=== PATIENT | female | born 2005 | race Two or more races ===

== ENCOUNTER → 2024-05-11 15:27 | Outpatient (CLI) | payer OTHER | END | disposition home or self-care (01) | LOC: PRENATAL 15:27 | PROVIDERS: ATTEND Obstetrics & Gynecology Maternal & Fetal Medicine | DX: O35.9XX0 Maternal care for (suspected) fetal abnormality and damage, unspecified, not applicable or unspecified (principal); O35.3XX0 Maternal care for (suspected) damage to fetus from viral disease in mother, not applicable or unspecified; O44.02 Complete placenta previa NOS or without hemorrhage, second trimester; Z3A.20 20 weeks gestation of pregnancy ==

== ENCOUNTER 2024-07-10 16:16 | Emergency (ER) | payer OTHER ==
[~2024-07-10] VITALS: Ht 167.6 cm; Wt 90.3 kg
[2024-07-10] MEDS ORDERED: HYOSCYAMINE SULFATE 0.125 MG TAB.SUBL SL ONE (17:15)
[2024-07-10 18:11] LABS: URINE APPEARANCE Clear; URINE BILIRRUBIN Negative (NEGATIVE); URINE BLOOD Negative; URINE COLOR Dark Yellow; URINE GLUCOSE Negative (NEGATIVE); URINE KETONE Trace (NEGATIVE); URINE LEUKOCYTE Negative; URINE NITRATE Negative; URINE PROTEIN Trace (NEGATIVE)
[2024-07-10 18:15] LABS: URINE BACTERIA 1327.9 uL (0.0-1933); URINE EPITHELIAL CELLS 17.6 uL (0.0-38.8); URINE RBC 3.6 uL (0.0-20.8); URINE WBC 12.3 uL (0.0-23.2)
[2024-07-10 18:19] LABS: HEMATOCRIT 36.7 % (36.0-45.00); HEMOGLOBIN 12.6 g/dL (12.0-15.00); MEAN CELL VOLUME 88.9 fL (80.00-100.00); MEAN CORPUSCULAR HEMOGLOBIN 30.5 pg (27.00-32.0); MEAN CORPUSCULAR HGB CONC 34.3 g/dl (32.0-36.0); PLATELET COUNT 185 K/uL (150-450); RED BLOOD COUNT 4.13 M/uL (4.00-6.00); RED CELL DISTRIBUTION WIDTH 15.8 % (11.5-14.5)
[2024-07-10 18:54] LABS: CREATININE SERUM 0.54 mg/dL (0.55-1.02); GFR 143.93; POTASSIUM 3.97 mEq/L (3.5-5.1)
[2024-07-10] MEDS ORDERED: LOPERAMIDE HCL 2 MG CAPSULE PO ONE (19:45)
== END 2024-07-10 19:58 | disposition home or self-care (01) ==
LOC: ER 16:17
PROVIDERS: Emergency Medicine
DX: O26.893 Other specified pregnancy related conditions, third trimester (principal); Z3A.28 28 weeks gestation of pregnancy; K52.89 Other specified noninfective gastroenteritis and colitis

== ENCOUNTER 2024-08-17 00:08 | Outpatient (CLI) | payer OTHER ==
[2024-08-16 23:14] VITALS: BP 106/67
[2024-08-17] MEDS ORDERED: PRENATAL CAPLE1 EAC1 PO (00:43)
[2024-08-17] MEDS ORDERED: RINGERS SOLUTION,LACTATED 1,000 ML IV SCH (01:00)
[2024-08-17 01:55] LABS: PH,URINE 7.5 (5.0-8.0); URINE APPEARANCE Clear; URINE BILIRRUBIN Negative (NEGATIVE); URINE BLOOD Negative; URINE COLOR Yellow; URINE GLUCOSE Negative (NEGATIVE); URINE KETONE Negative (NEGATIVE); URINE LEUKOCYTE Trace; URINE NITRATE Negative; URINE PROTEIN Negative (NEGATIVE)
[2024-08-17 01:58] LABS: HEMATOCRIT 34.5 % (36.0-45.00); MEAN CELL VOLUME 90.3 fL (80.00-100.00); MEAN CORPUSCULAR HEMOGLOBIN 30.6 pg (27.00-32.0); MEAN CORPUSCULAR HGB CONC 33.9 g/dl (32.0-36.0); PLATELET COUNT 169 K/uL (150-450); RED BLOOD COUNT 3.82 M/uL (4.00-6.00); RED CELL DISTRIBUTION WIDTH 14.8 % (11.5-14.5)
[2024-08-17 01:59] LABS: URINE BACTERIA 297.2 uL (0.0-1933); URINE EPITHELIAL CELLS 14.8 uL (0.0-38.8); URINE RBC 2.6 uL (0.0-20.8); URINE WBC 4.9 uL (0.0-23.2)
[2024-08-17 02:09] LABS: HEMOGLOBIN 11.7 g/dL (12.0-15.00)
[2024-08-17 02:10] LABS: URINE CAST 0.14 uL (0.0-1.40)
[2024-08-17 02:30] LABS: ALBUMIN 2.6 gm/dL (3.4-5.0); BILIRUBIN TOTAL 0.25 mg/dL (0.3-1.2); CALCIUM 8.5 mg/dL (8.5-10.1); CREATININE SERUM 0.56 mg/dL (0.55-1.02); GFR 138.01; GLOBULINA 3.3 G/DL (2.4-3.5); POTASSIUM 3.88 mEq/L (3.5-5.1); TOTAL PROTEIN 5.9 gm/dL (6.4-8.2)
[2024-08-17 04:08] VITALS: BP 109/70
[2024-08-17 06:14] VITALS: BP 103/64; O2SAT 99
[2024-08-17 11:58] VITALS: BP 111/71; O2SAT 99
[2024-08-17 13:19] VITALS: BP 111/71
== END 2024-08-17 13:22 | disposition home or self-care (01) ==
LOC: OBS/DEL 00:08
PROVIDERS: ATTEND Obstetrics & Gynecology
DX: O26.853 Spotting complicating pregnancy, third trimester (principal); R60.0 Localized edema; O26.849 Uterine size-date discrepancy, unspecified trimester; O36.8199 Decreased fetal movements, unspecified trimester, other fetus; O60.00 Preterm labor without delivery, unspecified trimester; O26.859 Spotting complicating pregnancy, unspecified trimester; Z3A.37 37 weeks gestation of pregnancy

== ENCOUNTER 2024-09-21 21:14 | Inpatient (IN) | payer OTHER ==
[~2024-09-21] VITALS: Ht 160 cm; Wt 3.6 kg
[~2024-09-21 21:14] MED LIST: PRENATAL CAPLE1 EAC1 PO
[2024-09-21 21:20] VITALS: BP 123/70
[2024-09-21] MEDS ORDERED: AMPICILLIN SODIUM 2,000 MG VIAL ONE (21:31)
[2024-09-21] MEDS ORDERED: MISOPROSTOL 25 MCG/4 ML GEL.W.APPL ONE (21:40)
[2024-09-21] MEDS ORDERED: MISOPROSTOL 25 MCG TABLET ONE (21:44)
[2024-09-21] MEDS ORDERED: AMPICILLIN SODIUM 2,000 MG VIAL IV SCH (21:44)
[2024-09-21] MEDS ORDERED: RINGERS SOLUTION,LACTATED 1,000 ML IV SCH (21:45)
[2024-09-21] MEDS ORDERED: ACETAMINOPHEN500 M2 PO (21:49)
[2024-09-21 21:57] LABS: PH,URINE 6.5 (5.0-8.0); URINE APPEARANCE Clear; URINE BILIRRUBIN Negative (NEGATIVE); URINE BLOOD Negative; URINE COLOR Yellow; URINE GLUCOSE Negative (NEGATIVE); URINE KETONE Negative (NEGATIVE); URINE LEUKOCYTE Negative; URINE NITRATE Negative; URINE PROTEIN Negative (NEGATIVE); URINE UROBILINOGEN 0.2 E.U./dl
[2024-09-21 21:58] LABS: URINE RBC 4.1 uL (0.0-20.8); URINE WBC 13.1 uL (0.0-23.2)
[2024-09-21 22:00] LABS: HEMATOCRIT 34.4 % (36.0-45.00); HEMOGLOBIN 11.9 g/dL (12.0-15.00); MEAN CORPUSCULAR HEMOGLOBIN 30.7 pg (27.00-32.0); MEAN CORPUSCULAR HGB CONC 34.5 g/dl (32.0-36.0); PLATELET COUNT 153 K/uL (150-450); RED BLOOD COUNT 3.86 M/uL (4.00-6.00); RED CELL DISTRIBUTION WIDTH 14.8 % (11.5-14.5)
[2024-09-21] MEDS ORDERED: ACETAMINOPHEN 500 MG GEL..CAP PO PRN (22:00)
[2024-09-21] MEDS ORDERED: MEPERIDINE HCL/PF 50 MG/ML VIAL IV PRN (22:00)
[2024-09-21] MEDS ORDERED: PROMETHAZINE HCL 25 MG/ML AMPUL IV PRN (22:00)
[2024-09-21] MEDS ORDERED: MISOPROSTOL 25 MCG TABLET VAG STA (22:06)
[2024-09-21 22:14] LABS: INR 0.95; PARTIAL THROMBOPLASTIN TIME 28.2 SECONDS (22.0-34.0); PROTHROMBIN TIME 10.4 SECONDS (9.0-11.5)
[2024-09-21 23:25] VITALS: BP 146/70
[2024-09-22 03:38] VITALS: BP 121/58
[2024-09-22 07:22] VITALS: BP 132/64
[2024-09-22 12:00] VITALS: BP 136/68
[2024-09-22] MEDS ORDERED: OXYTOCIN 20 UNITS/500ML RL PIGGYBAG IV ONE (12:46)
[2024-09-22] MEDS ORDERED: OXYTOCIN 20 UNITS/500ML RL PIGGYBAG IV SCH (13:00)
[2024-09-22 15:17] VITALS: BP 125/63
[2024-09-22] MEDS ORDERED: ERYTHROMYCIN BASE OPHT 1GM EACH TUBE OP ONE (16:00)
[2024-09-22] MEDS ORDERED: OXYTOCIN 10 UNITS/ML VIAL ONE ×2 (16:00→20:43)
[2024-09-22] MEDS ORDERED: CEFAZOLIN SODIUM 1,000 MG VIAL ONE (17:06)
[2024-09-22] MEDS ORDERED: KETOROLAC TROMETHAMINE 60 MG VIAL IM STA (18:12)
[2024-09-22] MEDS ORDERED: RINGERS SOLUTION,LACTATED 1,000 ML IV SCH (18:15)
[2024-09-22] MEDS ORDERED: OXYTOCIN 1,000 ML IV SCH (18:15)
[2024-09-22] MEDS ORDERED: MEPERIDINE HCL/PF 50 MG/ML VIAL IM PRN (18:15)
[2024-09-22] MEDS ORDERED: CHLORHEXIDINE GLUCONATE 120 ML BOTTLE TOP ONE (18:15)
[2024-09-22] MEDS ORDERED: PROMETHAZINE HCL 25 MG/ML AMPUL IM PRN (18:15)
[2024-09-22] MEDS ORDERED: MORPHINE SULFATE 4 MG/ML VIAL IV ONE (20:15)
[2024-09-22] MEDS ORDERED: AMPICILLIN SODIUM 1,000 MG VIAL ONE (20:43)
[2024-09-22 22:12] VITALS: BP 142/74
[2024-09-22 23:19] LABS: HEMATOCRIT 35.9 % (36.0-45.00); HEMOGLOBIN 12.1 g/dL (12.0-15.00); MEAN CELL VOLUME 89.5 fL (80.00-100.00); MEAN CORPUSCULAR HEMOGLOBIN 30.2 pg (27.00-32.0); MEAN CORPUSCULAR HGB CONC 33.7 g/dl (32.0-36.0); PLATELET COUNT 162 K/uL (150-450); RED BLOOD COUNT 4.01 M/uL (4.00-6.00); RED CELL DISTRIBUTION WIDTH 14.8 % (11.5-14.5)
[2024-09-23] VITALS: BP 119/73
[2024-09-23] MEDS ORDERED: OxyCODONE HCL/APAP UD (PERCOCET) PO PRN (09:00)
[2024-09-23 09:03] VITALS: BP 125/80
[2024-09-23 16:01] VITALS: BP 118/77
[2024-09-24 01:02] VITALS: BP 135/75
[2024-09-24 02:24] VITALS: BP 118/66
[2024-09-24 08:04] VITALS: BP 112/71
[2024-09-24 15:20] VITALS: BP 134/81
[2024-09-25 00:33] VITALS: BP 122/71
[2024-09-25 08:00] VITALS: BP 109/70
== END 2024-09-25 13:55 | disposition home or self-care (01) | DRG 785 ==
LOC: LDR 21:14 → O/R 09-22 16:24 → OB/GYN 09-22 20:22
PROVIDERS: ADMIT Obstetrics & Gynecology; ATTEND Obstetrics & Gynecology
PROC: 3E0P7VZ Introduction of Hormone into Female Reproductive, Via Natural or Artificial Opening (ICD-10-PCS; 2024-09-21)
PROC: 4A1HXCZ Monitoring of Products of Conception, Cardiac Rate, External Approach (ICD-10-PCS; 2024-09-21)
PROC: 0UB70ZZ Excision of Bilateral Fallopian Tubes, Open Approach (ICD-10-PCS; 2024-09-22)
PROC: 3E033VJ Introduction of Other Hormone into Peripheral Vein, Percutaneous Approach (ICD-10-PCS; 2024-09-22)
PROC: 10D00Z1 Extraction of Products of Conception, Low, Open Approach (ICD-10-PCS; principal; 2024-09-22 16:45)
DX: O36.8330 Maternal care for abnormalities of the fetal heart rate or rhythm, third trimester, not applicable or unspecified (principal); O99.824 Streptococcus B carrier state complicating childbirth; O36.63X0 Maternal care for excessive fetal growth, third trimester, not applicable or unspecified; O77.0 Labor and delivery complicated by meconium in amniotic fluid; Z3A.39 39 weeks gestation of pregnancy; Z37.0 Single live birth; Z30.2 Encounter for sterilization